=== PATIENT | male | born 1970 | race Caucasian/White ===

== ENCOUNTER 2022-08-14 16:05 | Inpatient (IN) | payer SELFPAY ==
[2022-08-14] VITALS (23 sets, daily range): BP systolic 113–147; BP diastolic 69–92; PULSE 70–101; RESP 13–23; TEMP 36.6–37.1; O2SAT 86–100; BMI 40.7
--- NOTE | ~2022-08-14 | CT_ITS ---
EXAMINATION: CTA chest PE protocol DATE: 08/14/2022 17:47 INDICATION: Shortness of breath TECHNIQUE: Computed tomography angiography (CTA) of the chest was performed with 100 mL Omnipaque-350 intravenous contrast timed to evaluate the pulmonary arteries. Coronal maximum intensity projection 3D-reconstructions were created by the technologist. The dose-length product (DLP) was 942.67 mGy-cm. Automated exposure control and iterative reconstruction technique were employed. COMPARISON: None. FINDINGS: The pulmonary arteries are well-opacified. No pulmonary embolism is identified. Nodules of the right upper lobe measure 2 mm and 4 mm. There is mild atelectasis of the right lower lobe. No pat hologically enlarged thoracic lymph nodes are identified. The heart size is normal. There is mild tho racic spondylosis. IMPRESSION: 1. No pulmonary embolus identified. 2. Mild atelectasis of the right lower lobe. 3. Right upper lobe nodules measuring up to 4 mm. If the patient has no risk factors for malignancy, no further follow up is required. If there are risk factors for malignancy (i.e., history of smoking , asbestos or radiation exposure), consider followup CT in 12 months. Reviewed, dictated and finalized at location [facility]. [employer] IMPRESSION: 1. No pulmonary embolus identified. 2. Mild atelectasis of the right lower lobe. 3. Right upper lobe nodules measuring up to 4 mm. If the patient has no risk fa ctors for malignancy, no further follow up is required. If there are risk fact ors for malignancy (i.e., history of smoking, asbestos or radiation exposure), consider followup CT in 12 months.
--- NOTE | ~2022-08-14 | US_ITS ---
EXAMINATION:US venous doppler LE BI INDICATION:Leg edema TECHNIQUE: Multiple grayscale, color flow and Doppler images of the right and left lower extremity de ep venous systems were obtained and reviewed. COMPARISON:No prior studies for comparison. FINDINGS: The common femoral, superficial femoral and popliteal veins demonstrate normal respiratory variation, augmentation and compressibility. Color flow is also seen within the posterior tibial, pe roneal, greater saphenous and profunda veins. IMPRESSION: 1: No lower extremity deep venous thrombosis. Reviewed, dictated and finalized at location [facility] [employer]
--- NOTE | 2022-08-14 16:15 | ECG_ITS ---
Measurements Intervals [place] Rate: 87 P: 66 [place]: 123 QRS: 70 QRSD: 93 T: 69 QT: 368 QTc: 444 Interpretive Statements SINUS RHYTHM BORDERLINE R WAVE PROGRESSION, ANTERIOR LEADS BASELINE ARTIFACT- I, AVL BORDERLINE ECG NO PREVIOUS ECG AVAILABLE FOR COMPARISON Electronically Signed On 08-15-2022 7:32:35 CAMP DIRECTOR by Jens Heredia D.O.
[2022-08-14 16:30] LABS: Basophils Absolute Auto 0.1 K/mm3 (0.0-0.1); Basophils Percent Auto 0.6 % (0.2-1.2); Eosinophils Absolute Auto 0.1 K/mm3 (0-0.3); Eosinophils Percent Auto 0.4 % (0-4.4); Hemoglobin 16.1 g/dL (14.0-18.0); Immature Granulocyte Absolute 0.06 K/mm3 (0.00-0.031); Immature Granulocyte Percent A 0.5 % (0-0.5); Lymphocytes Absolute Auto 1.81 K/mm3 (0.9-3.2); Lymphocytes Percent Auto 15.5 % (18.3-44.2); Mean Corpuscular Hemoglobin 29.3 pg (26-34); Mean Corpuscular Volume 94.7 fl (80-100); Mean Platelet Volume 9.2 fl (7.4-10.4); Monocytes Absolute Auto 0.9 K/mm3 (0.1-0.6); Monocytes Percent Auto 7.6 % (2.6-8.5); Neutrophils Absolute Auto 8.8 K/mm3 (1.3-6.7); Neutrophils Percent Auto 75.4 % (45.5-73.1); Platelet Count Result 297 k/mm3 (150-375); Red Blood Count 5.49 M/mm3 (4.6-6.20); Red Cell Distribution Width 15.6 % (11.5-14.5); White Blood Count 11.7 K/mm3 (4.5-10.0)
[2022-08-14] MEDS: IPRATROPIUM BR 0.02% INH SOLN 0.5 MG/2.5 ML VIAL INHALATION ×2 (16:37→17:52)
[2022-08-14] MEDS: ALBUTEROL SULFATE NEB 2.5 MG/3 ML INH 5 MG INHALATION ×2 (16:37→17:52)
--- NOTE | 2022-08-14 16:38 | ED.GENADULT ---
HPI - General Adult General Chief complaint: Shortness of Breath/Dyspnea Stated complaint: shortness of breath, decreased oxygen saturations Time Seen by Provider: 08/14/22 16:15 Source: RN notes reviewed History of Present Illness HPI narrative: Patient presents emergency department from home for shortness of breath. Patient states he has been feeling progressively short of breath over the past several months he states is gotten worse over the past week states is associated with an occasional cough this been nonproductive states that shortness of breath is worse with exertion. Patient also notes he has been having swelling of his bilateral lower extremities. Shortness of breath does not get worse when he lays down flat he denies any fevers or chills or chest pain denies any abdominal pain nausea or vomiting. States he does have a history of smoking approximately 1 and half packs per day of cigarettes states he has not been doing see a doctor in numerous years Related Data Allergies Allergy/AdvReac Type Severity Reaction Status Date / Time No Known Allergies Allergy Verified 08/14/22 16:29 Review of Systems Review of Systems: Gen.: Denies fevers or chills ENT: Denies congestion Respiratory: See HPI CV: Denies chest pain or palpitations GI: Denies abdominal pain nausea, emesis or diarrhea Musculoskeletal: Denies back pain or muscle pain Neuro: Denies numbness, tingling, weakness or focal weakness Skin: Denies rash Except as documented, all other systems reviewed and negative [facility] Past Medical History Medical History (Updated 08/14/22 @ 18:27 by Agustin Rinaldi DO) Patient denies significant medical history Social History Social History (Updated 08/14/22 @ 18:24 by Agustin Rinaldi DO) Smoking packs per day: 1.5 Smoking cigarettes per day: 30.0 Smoking status: Current every day smoker Exam Narrative: APPEARANCE: Mild respiratory distress, nontoxic, resting in bed EYES: EOMI HEENT: Normocephalic, atraumatic, OMM RESPIRATORY: Mild respiratory distress, speaking in full sentences, wheezing throughout the bilateral lung salas with decreased breath sounds in the bases CARDIOVASCULAR: Regular rate and rhythm without murmurs rubs or gallops. ABDOMINAL: Soft, nontender, nondistended, no rebound or guarding MUSCULOSKELETAl: Moves all extremities. No clubbing, cyanosis or edema. NEURO: Awake and alert. Following commands, speech normal, no focal deficits SKIN:: Warm, dry. No rashes lesions or abrasions PSYCHIATRIC: Normal affect/mood, Course Course Emergency Course: Patient with episodes of desat and down into the upper 80s on room air will placed on nasal cannula Discussed with ABIMAEL Raya for Dr. Tobias for hospitalist service who agrees with admission Discussed with patient and family results of workup and diagnosis. Discussed need for admission. Patient and family understand and agree to current treatment plan Vital Signs Vital signs: Vital Signs Temperature 98.7 F 08/14/22 16:10 Pulse Rate 92 08/14/22 16:10 Respiratory Rate 20 08/14/22 16:10 Blood Pressure 147/77 H 08/14/22 16:10 Pulse Oximetry 94 08/14/22 16:10 Oxygen Delivery Room Air 08/14/22 16:10 Temperature 98.7 F 08/14/22 16:10 Pulse Rate 101 H 08/14/22 18:12 Respiratory Rate 22 H 08/14/22 18:12 Blood Pressure 143/69 H 08/14/22 17:16 Pulse Oximetry 87 L 08/14/22 17:18 Oxygen Delivery Nasal Cannula 08/14/22 17:18 Oxygen Flow Rate 2 08/14/22 17:18 Medical Decision Making [facility] Narrative Medical decision making narrative: Patient presents for shortness of breath history of of smoking 1/2 packs/day for numerous years has not seen a doctor in over 10 years wheezing throughout the bilateral lung salas times suspect the patient has COPD CT of the chest shows no pneumonia or PEs lab results are within normal limits BMP is normal and patient is negative for COVID and influenza will admit for continued breat
[2022-08-14] MEDS: methylPREDNISolone SOD SUCC 125 MG VIAL IV PUSH (16:39)
[2022-08-14 16:40] LABS: Alanine Aminotransferase 31 U/L (6-50); Albumin Level 3.6 g/dL (3.5-5.1); Alkaline Phosphatase 59 U/L (38-126); Aspartate Amino Transferase 21 U/L (17-59); Bilirubin,Total 0.4 mg/dL (0.2-1.3); Blood Urea Nitrogen 20 mg/dL (9-20); Calcium 8.5 mg/dL (8.4-10.2); Carbon Dioxide > 40 mmol/L (22-30); Chloride 93 mmol/L (98-107); Estimated CRCL calculation 97 ml/min; Estimated Glomerular Filt Rate > 60; Glucose 121 mg/dL (65-110); Potassium 3.7 mmol/L (3.4-5.0); Sodium 139 mmol/L (137-145)
[2022-08-14 16:41] LABS: Partial Thromboplastin Time 23.3 SECONDS (22.3-36.8); Prothrombin Time 12.6 Seconds (11.1-14.7)
[2022-08-14 16:51] LABS: NT Pro B Type Natriuretic Pept 45 pg/mL (19.9-100); Troponin I 0.028 ng/mL (0.000-0.034)
[2022-08-14 17:16] LABS: Influenza A QL RT-PCR Negative (Negative); Influenza B QL RT-PCR Negative (Negative); SARS-CoV-2 RNA PCR Negative
--- NOTE | 2022-08-14 18:48 | PM.IMHP ---
H&P: HPI History of Present Illness Date/Time: 08/14/22 18:48 Chief Complaint: Shortness of breath Narrative: This is a 52-year-old male patient who has not not been to a physician in many years. The patient does not take any medication. The patient stated that he came to the emergency room because he has been short of breath. This has been getting progressively worse over the last several months. He also has a cough and shortness of breath with exertion. He has also been having swelling in his lower extremities and he has orthopnea. No fever no chills. The patient endorses that he smokes 1 and half packs of cigarettes a day. CTA was read as the following. No pulmonary embolus identified. 2. Mild atelectasis of the right lower lobe. 3. Right upper lobe nodules measuring up to 4 mm. If the patient has no risk factors for malignancy, no further follow up is required.? If there are risk factors for malignancy (i.e., history of smoking, asbestos or radiation exposure), consider followup CT in 12 months. The patient was given Solu-Medrol and neb treatments in the emergency room. The patient is being admitted to observation status on the date of service of 08/14/2022 Review of Systems Review of Systems: See HPI [facility] Past Medical History Medical History (Updated 08/15/22 @ 01:19 by Dorota Angelo NP) Patient denies significant medical history Tobacco abuse Surgical History Surgical History (Updated 08/14/22 @ 18:49 by Dorota Angelo NP) H/O foot surgery Family History Family History (Updated 08/14/22 @ 18:50 by Dorota Angelo NP) Mother Dementia Social History Social History (Updated 08/15/22 @ 01:20 by Dorota Angelo NP) Social History: The patient is seperated from his legally but still continues to live with her. They have 3 children. The patient works at [employer]. The patient smokes at least 1 and half packs of cigarettes a day. He uses marijuana . Patient denies alcohol use but stated he drink heavily when he was younger. Code status full code Smoking packs per day: 1.5 Smoking cigarettes per day: 30.0 Years smoked: 40 Smoking pack-years: 60.00 Smoking status: Current every day smoker Tobacco type: cigarettes Alcohol intake: former Substance use: current Substance use type: marijuana Lack of Transportation: No Lack of Food: Never True Current Housing: I Have Housing Concerned About Future Housing: Decline to Answer Difficulty Paying Gas/Electric Bills: Decline to Answer Difficulty Paying for Meds: Decline to Answer Currently Unemployed: Decline to Answer Education: Grade School Difficulty w/ Childcare or Family Care: No Spiritual care concerns: No Meds Home Medications and Allergies Home Medications Medication Instructions Recorded Confirmed Type No Home Medications 08/14/22 08/14/22 History Allergies Allergy/AdvReac Type Severity Reaction Status Date / Time No Known Allergies Allergy Verified 08/14/22 16:29 Vital Signs Vital Signs - 24 hr 08/14/22 16:10 08/14/22 16:28 08/14/22 16:37 Temperature 37.1 C Pulse Rate 92 94 Respiratory Rate 20 20 Blood Pressure 147/77 H Pulse Oximetry 94 92 Oxygen Delivery Room Air Room Air Oxygen Flow Rate 08/14/22 16:55 08/14/22 17:18 08/14/22 16:17 Temperature Pulse Rate 90 Respiratory Rate 20 Blood Pressure Pulse Oximetry 87 L 92 Oxygen Delivery Nasal Cannula Oxygen Flow Rate 2 08/14/22 16:23 08/14/22 16:40 08/14/22 17:09 Temperature Pulse Rate 89 Respiratory Rate 22 H 13 Blood Pressure 142/92 H Pulse Oximetry 93 100 86 L Oxygen Delivery Oxygen Flow Rate 08/14/22 17:15 08/14/22 17:16 08/14/22 17:54 Temperature Pulse Rate 70 98 Respiratory Rate 18 18 22 H Blood Pressure 143/69 H Pulse Oximetry 92 96 Oxygen Delivery Oxygen Flow Rate 08/14/22 18:12 Temperature Pulse Rate 101 H
--- NOTE | 2022-08-14 21:07 | PC.NURSE ---
This patient, Ronal Mcgovren, was admitted to Medical Room 347-01. Patient/family oriented to hospital policies and general routines including ID bracelet, bed and alarms, visiting hours, pain management, procedures, bathroom and other care routines, personal items, smoking policy, room service/diet, and visiting hours. Information on how to activate the Rapid Response Team has been discussed. Patient/Family are encouraged to report perceived risks to care and to ask questions if they do not understand what they are told or what they should do.
[2022-08-14] MEDS: methylPREDNISolone SOD SUCC 125 MG VIAL 60 MG IV PUSH (23:10)
[2022-08-15] VITALS (12 sets, daily range): BP systolic 106–127; BP diastolic 60–69; PULSE 83–108; RESP 18–36; TEMP 36.4–36.8; O2SAT 92–98
[2022-08-15] MEDS: ALBUTEROL SULFATE NEB 2.5 MG/3 ML INH 5 MG INHALATION ×4 (03:15→20:34)
[2022-08-15] MEDS: IPRATROPIUM BR 0.02% INH SOLN 0.5 MG/2.5 ML VIAL INHALATION ×4 (03:16→20:34)
[2022-08-15] MEDS: methylPREDNISolone SOD SUCC 125 MG VIAL 60 MG IV PUSH (05:36)
[2022-08-15 06:02] LABS: Basophils Percent Auto 0.1 % (0.2-1.2); Hematocrit 54.7 % (42.0-52.0); Hemoglobin 16.1 g/dL (14.0-18.0); Immature Granulocyte Absolute 0.05 K/mm3 (0.00-0.031); Immature Granulocyte Percent A 0.4 % (0-0.5); Lymphocytes Absolute Auto 0.74 K/mm3 (0.9-3.2); Lymphocytes Percent Auto 5.2 % (18.3-44.2); Mean Corpuscular HGB Conc 29.4 g/dl (32-36); Mean Corpuscular Hemoglobin 28.3 pg (26-34); Mean Corpuscular Volume 96.3 fl (80-100); Mean Platelet Volume 9.1 fl (7.4-10.4); Monocytes Absolute Auto 0.7 K/mm3 (0.1-0.6); Monocytes Percent Auto 5.2 % (2.6-8.5); Neutrophils Absolute Auto 12.6 K/mm3 (1.3-6.7); Neutrophils Percent Auto 89.1 % (45.5-73.1); Platelet Count Result 323 k/mm3 (150-375); Red Blood Count 5.68 M/mm3 (4.6-6.20); Red Cell Distribution Width 15.7 % (11.5-14.5); White Blood Count 14.1 K/mm3 (4.5-10.0)
[2022-08-15 06:20] LABS: Alanine Aminotransferase 33 U/L (6-50); Albumin Level 3.8 g/dL (3.5-5.1); Alkaline Phosphatase 56 U/L (38-126); Anion Gap 3 mmol/L (8-16); Aspartate Amino Transferase 19 U/L (17-59); Bilirubin,Total 0.4 mg/dL (0.2-1.3); Blood Urea Nitrogen 19 mg/dL (9-20); Calcium 8.2 mg/dL (8.4-10.2); Carbon Dioxide 39 mmol/L (22-30); Chloride 96 mmol/L (98-107); Estimated CRCL calculation 120 ml/min; Estimated Glomerular Filt Rate > 60; Glucose 177 mg/dL (65-110); Potassium 4.7 mmol/L (3.4-5.0); Sodium 138 mmol/L (137-145)
[2022-08-15] MEDS: ENOXAPARIN 40 MG/0.4 ML SYRINGE SUB-Q (08:45)
--- NOTE | 2022-08-15 11:21 | PM.CNPUL ---
Assessment and Plan Assessment and plan (1) Acute respiratory failure with hypoxia: Code(s): J96.01 - Acute respiratory failure with hypoxia Status: Acute (2) Tobacco abuse: Code(s): Z72.0 - Tobacco use Status: Acute (3) Shortness of breath: Code(s): R06.02 - Shortness of breath Status: Acute Assessment and Plan: this 52-year-old morbidly obese man has had chronic shortness of breath daytime somnolence, evidence of elevated bicarbonate while on no medications, no evidence of parenchymal lung disease on chest CT. patient's history and diagnostic studies suggest obesity hypoventilation syndrome accounting for most of his symptoms. Plan: ABGs to assess for chronic hypercapnia. Will consider DC home following ABGs. The patient will need further workup with split polysomnography, PFT on an outpatient basis. I have discontinued IV steroids. He will need home oxygen evaluation. History of Present Illness History of Present Illness Consult date: 08/15/22 Chief complaint: Acute respiratory failure with hypoxia, COPD Narrative: this 52-year-old man presented with a chronic shortness of breath. The patient stated that he has been short of breath especially with activities for a number of months. He also noticed some lower extremity edema. He has been a heavy smoker of 1.5 packs per day for many years. He had no fever chills hemoptysis chest pain palpitations orthopnea or wheezing. Upon questioning he admitted having excessive daytime somnolence. 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 On evaluation in the emergency room initial chest CT showed no active lung disease. He has been on supplemental oxygen for hypoxemia. First oximetry evaluation in the emergency room on room air showed no oxyhemoglobin desaturation initially. Patient has been treated with nebulized short-acting bronchodilators and IV steroids presumably for COPD exacerbation. No blood gases were drawn. Total bicarbonate level elevated on admission. Patient has not been on any home medications. Review of Systems Review of Systems: All systems reviewed & are unremarkable except as noted in HPI and below ( HPI and below) [facility] Past Medical History Medical History (Updated 08/15/22 @ 11:25 by Guille Aguayo MD) Patient denies significant medical history Tobacco abuse Surgical History Surgical History (Updated 08/14/22 @ 18:49 by Dorota Angelo NP) H/O foot surgery Family History Family History (Updated 08/14/22 @ 18:50 by Dorota Angelo NP) Mother Dementia Social History Social History (Updated 08/15/22 @ 01:20 by Dorota Angelo NP) Social History: The patient is seperated from his legally but still continues to live with her. They have 3 children. The patient works at [employer]. The patient smokes at least 1 and half packs of cigarettes a day. He uses marijuana . Patient denies alcohol use but stated he drink heavily when he was younger. Code status full code Smoking packs per day: 1.5 Smoking cigarettes per day: 30.0 Years smoked: 40 Smoking pack-years: 60.00 Smoking status: Current every day smoker Tobacco type: cigarettes Alcohol intake: former Substance use: current Substance use type: marijuana Lack of Transportation: No Lack of Food: Never True Current Housing: I Have Housing Concerned About Future Housing: Decline to Answer Difficulty Paying Gas/Electric Bills: Decline to Answer Difficulty Paying for Meds: Decline to Answer Currently Unemployed: Decline to Answer Education: Grade School Difficulty w/ Childcare or Family Care: No Spiritual care concerns: No Meds Home Medications and Allergies Home Medications Medication Instructions Recorded Confirmed Type No Home Medications 08/14/22 08/14/22 History Allergies Allergy/AdvReac Type Severity Reaction Statu
[2022-08-15 13:42] LABS: Alveolar/Arterial O2 Gradient 46.6 mmHg; Fractional Inspired Oxygen 28 %; HCO3 ABG 37.4 mEq/l (22.0-26.0); Oxygen Content ABG 20.4 %vol (16.0-22.0); PO2 ABG 58.9 mmHg (80.0-100.0); Total Hemoglobin 16.7 g/dL (12.0-18.0)
[2022-08-15 13:45] LABS: pH ABG 7.289 (7.350-7.450)
[2022-08-15 13:46] LABS: Oxygen Saturation ABG 86.2 % (95.0-100.0); PCO2 ABG 79.8 mmHg (35.0-45.0)
[2022-08-15 13:47] LABS: Device NASAL CANNULA; Modified Allen's Test Pass; Site Drawn LEFT RADIAL
--- NOTE | 2022-08-15 15:18 | PM.IMPN ---
Progress Note: A&P Assessment and Plan (1) Acute respiratory failure with hypoxia: Code(s): J96.01 - Acute respiratory failure with hypoxia Status: Acute Assessment and Plan: also with hypercapnia BiPAP started Pulmonary on board Steroid Long-term smoker Multiple nodules right upper lobe measuring up to 4 mm needs follow-up with CT Bronchodilators encouraged smoking cessation (2) Tobacco abuse: Code(s): Z72.0 - Tobacco use Status: Acute Assessment and Plan: Encouraged smoking cessation. 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 Check echo. ApneaLink tonight DVT prophylaxis Lovenox Subjective Date/time seen: 08/15/22 15:18 history reviewed. Still feels short of breath on 2 L oxygen. Has not seen physician for well. Discussed with Pulmonary. Review of Systems Review of Systems: All systems reviewed & are unremarkable except as noted in HPI and below Exam Narrative: APPEARANCE: no respiratory distress, nontoxic, sitting up in a chair EYES: EOMI HEENT: Normocephalic, atraumatic, OMM RESPIRATORY: no acute respiratory distress, speaking in full sentences, wheezing throughout the bilateral lung salas with decreased breath sounds in the bases CARDIOVASCULAR: Regular rate and rhythm without murmurs rubs or gallops. ABDOMINAL: Soft, nontender, nondistended, no rebound or guarding MUSCULOSKELETAl: Moves all extremities. No clubbing, cyanosis or edema. NEURO: Awake and alert. Following commands, speech normal, no focal deficits SKIN:: Warm, dry. No rashes lesions or abrasions PSYCHIATRIC: Normal affect/mood Objective Data Vital Signs Vital Signs: Vital Signs - 24 hr 08/14/22 16:10 08/14/22 16:28 08/14/22 16:37 Temperature 98.7 F Pulse Rate 92 94 Respiratory Rate 20 20 Blood Pressure 147/77 H Pulse Oximetry 94 92 Oxygen Delivery Room Air Room Air Oxygen Flow Rate 08/14/22 16:55 08/14/22 17:18 08/14/22 16:17 Temperature Pulse Rate 90 Respiratory Rate 20 Blood Pressure Pulse Oximetry 87 L 92 Oxygen Delivery Nasal Cannula Oxygen Flow Rate 2 08/14/22 16:23 08/14/22 16:40 08/14/22 17:09 Temperature Pulse Rate 89 Respiratory Rate 22 H 13 Blood Pressure 142/92 H Pulse Oximetry 93 100 86 L Oxygen Delivery Oxygen Flow Rate 08/14/22 17:15 08/14/22 17:16 08/14/22 17:54 Temperature Pulse Rate 70 98 Respiratory Rate 18 18 22 H Blood Pressure 143/69 H Pulse Oximetry 92 96 Oxygen Delivery Oxygen Flow Rate 08/14/22 18:12 08/14/22 19:00 08/14/22 19:23 Temperature Pulse Rate 101 H Respiratory Rate 22 H Blood Pressure Pulse Oximetry 93 90 Oxygen Delivery Oxygen Flow Rate 08/14/22 19:40 08/14/22 19:45 08/14/22 19:46 Temperature Pulse Rate 83 94 94 Respiratory Rate 17 23 H 19 Blood Pressure 118/79 Pulse Oximetry 95 94 93 Oxygen Delivery Oxygen Flow Rate 08/14/22 20:00 08/14/22 20:02 08/14/22 20:17 Temperature Pulse Rate 81 92 99 Respiratory Rate 14 18 13 Blood Pressure 119/79 Pulse Oximetry 97 97 92 Oxygen Delivery Oxygen Flow Rate 08/14/22 20:42 08/14/22 21:02 08/15/22 03:18 Temperature 97.8 F Pulse Rate 97 97 Respiratory Rate 18 18 Blood Pressure 113/73 Pulse Oximetry 93 95 Oxygen Delivery Nasal Cannula Oxygen Flow Rate 2 08/15/22 04:38 08/15/22 10:23 08/15/22 14:05 Temperature 97.6 F 97.6 F Pulse Rate 98 108 H 94 Respiratory Rate 18 24 H 22 H Blood Pressure 106/60 123/69 Pulse Oximetry 92 92 Oxygen Delivery Oxygen Flow Rate Intake/Output Intake/Output: Intake & Output 07/20
--- NOTE | 2022-08-15 17:04 | PC.NURSE ---
Dr Aguayo placed pt on Bipap at 1500 and will redraw ABG's at 1999. supervisor powdered sugar and hospitalist, Dr Joaquin notified that patient is on bipap on medical floor until lab redraw @ 1999.
[2022-08-15 20:21] LABS: Alveolar/Arterial O2 Gradient 110.4 mmHg; Base Excess ABG 11.7 mEq/l (+/-2.0); Carboxyhemoglobin 1.5 % THb (0-2.0); Fractional Inspired Oxygen 35 %; HCO3 ABG 40.2 mEq/l (22.0-26.0); Methemoglobin ABG 0.4 %THb (0-1.5); Oxygen Content ABG 20.1 %vol (16.0-22.0); Oxygen Saturation ABG 89.6 % (95.0-100.0); Oxyhemoglobin 89.9 % THb (90.0-100.0); PO2 ABG 59.6 mmHg (80.0-100.0); Reduced Hemoglobin 8.2 %THb (0-5.0); Total Hemoglobin 15.9 g/dL (12.0-18.0); pH ABG 7.387 (7.350-7.450)
[2022-08-15 20:27] LABS: Device BIPAP; Modified Allen's Test Pass; PCO2 ABG 68.4 mmHg (35.0-45.0); Site Drawn RIGHT RADIAL
[2022-08-15 20:28] LABS: Expiratory Pressure 6 cmH2O; Inspiratory Pressure 12 cmH2O
[2022-08-16] VITALS (16 sets, daily range): BP systolic 111–118; BP diastolic 60–66; PULSE 70–83; RESP 15–23; TEMP 36.1–37; O2SAT 90–97
[2022-08-16] MEDS: IPRATROPIUM BR 0.02% INH SOLN 0.5 MG/2.5 ML VIAL INHALATION ×3 (01:50→20:57)
[2022-08-16] MEDS: ALBUTEROL SULFATE NEB 2.5 MG/3 ML INH 5 MG INHALATION ×3 (01:50→20:57)
[2022-08-16 05:20] LABS: Basophils Percent Auto 0.2 % (0.2-1.2); Eosinophils Percent Auto 0.2 % (0-4.4); Hematocrit 51.1 % (42.0-52.0); Hemoglobin 14.9 g/dL (14.0-18.0); Immature Granulocyte Absolute 0.05 K/mm3 (0.00-0.031); Immature Granulocyte Percent A 0.4 % (0-0.5); Lymphocytes Absolute Auto 1.45 K/mm3 (0.9-3.2); Lymphocytes Percent Auto 11.9 % (18.3-44.2); Mean Corpuscular HGB Conc 29.2 g/dl (32-36); Mean Corpuscular Hemoglobin 28.4 pg (26-34); Mean Corpuscular Volume 97.5 fl (80-100); Mean Platelet Volume 9.1 fl (7.4-10.4); Monocytes Percent Auto 7.9 % (2.6-8.5); Neutrophils Absolute Auto 9.6 K/mm3 (1.3-6.7); Neutrophils Percent Auto 79.4 % (45.5-73.1); Platelet Count Result 263 k/mm3 (150-375); Red Blood Count 5.24 M/mm3 (4.6-6.20); Red Cell Distribution Width 15.5 % (11.5-14.5); White Blood Count 12.2 K/mm3 (4.5-10.0)
[2022-08-16 05:44] LABS: Alanine Aminotransferase 26 U/L (6-50); Albumin Level 3.3 g/dL (3.5-5.1); Alkaline Phosphatase 49 U/L (38-126); Aspartate Amino Transferase 15 U/L (17-59); Bilirubin,Total 0.4 mg/dL (0.2-1.3); Blood Urea Nitrogen 23 mg/dL (9-20); Calcium 7.8 mg/dL (8.4-10.2); Carbon Dioxide > 40 mmol/L (22-30); Chloride 93 mmol/L (98-107); Estimated CRCL calculation 106 ml/min; Estimated Glomerular Filt Rate > 60; Glucose 118 mg/dL (65-110); Hypochromasia 1+ (NORMAL); Magnesium 2.2 mg/dL (1.6-2.3); Platelet Estimate Adequate (Adequate); Potassium 4.2 mmol/L (3.4-5.0); Sodium 137 mmol/L (137-145)
[2022-08-16] MEDS: ENOXAPARIN 40 MG/0.4 ML SYRINGE SUB-Q (08:17)
--- NOTE | 2022-08-16 12:24 | PM.PNPUL ---
Progress Note: A&P Assessment and Plan (1) Acute respiratory failure with hypoxia: Code(s): J96.01 - Acute respiratory failure with hypoxia Status: Acute Assessment and Plan: 52-year-old man presented with shortness of breath mild lower extremity edema and acute on chronic hypercapnic respiratory failure. Diagnostic studies and patient history suggest obesity hypoventilation syndrome. Patient has been on BiPAP support with improvement of gas exchange and also clinical condition. He seems to be tolerating BiPAP support very well. Plan: will continue with AVAPS tidal volume 500 EPAP 8 and supplemental oxygen to titrate for O2 sat over 92%. Patient will have a ApneaLink monitor on those settings tonight. (2) Tobacco abuse: Code(s): Z72.0 - Tobacco use Status: Acute (3) Acute and chronic respiratory failure with hypercapnia: Code(s): J96.22 - Acute and chronic respiratory failure with hypercapnia Status: Acute Subjective Date/time seen: 08/16/22 12:24 Interval history: patient doing better. He has been on BiPAP support since yesterday for acute on chronic hypercapnic respiratory failure. Tolerating BiPAP support well. No new respiratory symptoms. Currently on nasal cannula Review of Systems Review of Systems: All systems reviewed & are unremarkable except as noted in HPI and below ( HPI and below) Exam Narrative: GENERAL APPEARANCE: Well developed, well nourished, alert and cooperative, and appears to be in no acute distress while on supplemental oxygen via nasal cannula SKIN: Inspection of the skin reveals no rashes, ulcerations or petechiae. HEENT: Sclerae anicteric and conjunctivae pink and moist. Extraocular movements were intact and pupils were equal, round, and reactive to light. The oral mucosa, hard and soft palate, tongue and posterior pharynx were normal. edentulous NECK: Supple. There was no thyroid enlargement, and no tenderness, or masses were felt. CHEST: Normal AP diameter and normal contour without any kyphoscoliosis. LUNGS: Auscultation of the lungs revealed normal breath sounds without any other adventitious sounds or rubs. CARDIAC: There was a regular rate and rhythm without any murmurs, gallops, rubs. ABDOMEN: Soft and nontender with normal bowel sounds. There was no organomegaly. LYMPH NODES: No lymphadenopathy was appreciated in the neck. EXTREMITIES: No cyanosis, clubbing; trace pedal edema NEUROLOGIC: Alert and oriented x 3. Normal affect. Objective Data Vital Signs Vital Signs: Vital Signs - 24 hr 08/15/22 14:05 08/15/22 14:50 08/15/22 14:50 Temperature 36.4 C Pulse Rate 94 87 87 Respiratory Rate 22 H 21 H 21 H Blood Pressure 123/69 Pulse Oximetry 92 96 Oxygen Delivery BiPAP Oxygen Flow Rate 08/15/22 16:00 08/15/22 18:56 08/15/22 20:30 Temperature Pulse Rate 97 83 Respiratory Rate 24 H 36 H Blood Pressure Pulse Oximetry 98 Oxygen Delivery BiPAP BiPAP Oxygen Flow Rate 08/15/22 20:30 08/15/22 20:30 08/15/22 20:00 Temperature Pulse Rate 83 88 Respiratory Rate 36 H Blood Pressure Pulse Oximetry 98 Oxygen Delivery Oxygen Flow Rate 08/15/22 21:00 08/15/22 20:00 08/15/22 22:00 Temperature 36.8 C Pulse Rate 86 86 85 Respiratory Rate 24 H 24 H 22 H Blood Pressure 127/61 Pulse Oximetry 94 94 Oxygen Delivery BiPAP Oxygen Flow Rate 08/15/22 23:44 08/16/22 00:00 08/16/22 01:51 Temperature Pulse Rate 70 83 Respiratory Rate 24 H Blood Pressure Pulse Oximetry 90 Oxygen Delivery BiPAP Nasal Cannula Oxygen Flow Rate 08/16/22 01:51 08/16/22 01:51 08/16/22 03:31 Temperature Pulse Rate 83 83 81 Respiratory Rate 20 20 20 Blood Pressure Pulse Oximetry 90 92 Oxygen Delivery Nasal Cannula BiPAP Oxygen Flow Rate 2 08/16/22 02:05 08/16/22 04:00 08/16/22 06:00 Temperature 36.8 C Pulse Rate 82 73 73 Respiratory Rate 22 H 20 Blood Pressure
--- NOTE | 2022-08-16 14:44 | PM.IMPN ---
Progress Note: A&P Assessment and Plan (1) Acute respiratory failure with hypoxia: Code(s): J96.01 - Acute respiratory failure with hypoxia Status: Acute Assessment and Plan: also with hypercapnia BiPAP started which he tolerated well. Pulmonary on board Steroid Long-term smoker Multiple nodules right upper lobe measuring up to 4 mm needs follow-up with CT Bronchodilators encouraged smoking cessation (2) Tobacco abuse: Code(s): Z72.0 - Tobacco use Status: Acute Assessment and Plan: Encouraged smoking cessation. Nicotine patch has been ordered for the patient (3) COPD (chronic obstructive pulmonary disease): Code(s): J44.9 - Chronic obstructive pulmonary disease, unspecified Status: Acute Assessment and Plan: -the patient will need a pulmonary function test and will need to follow with director of product marketing Plan lower extremity edema: Venous duplex negative . echo pending. ApneaLink tonight DVT prophylaxis Lovenox Subjective Date/time seen: 08/16/22 14:44 Interval history: remained on BiPAP overnight. Feels okay. has cough no other complaints Review of Systems Review of Systems: All systems reviewed & are unremarkable except as noted in HPI and below Exam Narrative: APPEARANCE: no respiratory distress, nontoxic, lying in bed EYES: EOMI HEENT: Normocephalic, atraumatic, OMM RESPIRATORY: no acute respiratory distress, speaking in full sentences, wheezing throughout the bilateral lung salas with decreased breath sounds in the bases CARDIOVASCULAR: Regular rate and rhythm without murmurs rubs or gallops. ABDOMINAL: Soft, nontender, nondistended, no rebound or guarding MUSCULOSKELETAl: Moves all extremities. No clubbing, cyanosis or edema. NEURO: Awake and alert. Following commands, speech normal, no focal deficits SKIN:: Warm, dry. No rashes lesions or abrasions PSYCHIATRIC: Normal affect/mood Objective Data Vital Signs Vital Signs: Vital Signs - 24 hr 08/15/22 14:50 08/15/22 14:50 08/15/22 16:00 Temperature Pulse Rate 87 87 97 Respiratory Rate 21 H 21 H Blood Pressure Pulse Oximetry 96 Oxygen Delivery BiPAP Oxygen Flow Rate 08/15/22 18:56 08/15/22 20:30 08/15/22 20:30 Temperature Pulse Rate 83 Respiratory Rate 24 H 36 H Blood Pressure Pulse Oximetry 98 98 Oxygen Delivery BiPAP BiPAP Oxygen Flow Rate 08/15/22 20:30 08/15/22 20:00 08/15/22 21:00 Temperature Pulse Rate 83 88 86 Respiratory Rate 36 H 24 H Blood Pressure Pulse Oximetry Oxygen Delivery Oxygen Flow Rate 08/15/22 20:00 08/15/22 22:00 08/15/22 23:44 Temperature 98.3 F Pulse Rate 86 85 Respiratory Rate 24 H 22 H 24 H Blood Pressure 127/61 Pulse Oximetry 94 94 Oxygen Delivery BiPAP BiPAP Oxygen Flow Rate 08/16/22 00:00 08/16/22 01:51 08/16/22 01:51 Temperature Pulse Rate 70 83 83 Respiratory Rate 20 Blood Pressure Pulse Oximetry 90 90 Oxygen Delivery Nasal Cannula Nasal Cannula Oxygen Flow Rate 2 08/16/22 01:51 08/16/22 03:31 08/16/22 02:05 Temperature Pulse Rate 83 81 82 Respiratory Rate 20 20 22 H Blood Pressure Pulse Oximetry 92 Oxygen Delivery BiPAP Oxygen Flow Rate 08/16/22 04:00 08/16/22 06:00 08/16/22 09:18 Temperature 98.2 F Pulse Rate 73 73 76 Respiratory Rate 20 Blood Pressure 111/62 Pulse Oximetry 96 96 Oxygen Delivery Nasal Cannula Oxygen Flow Rate 2 08/16/22 09:18 08/16/22 09:26 Temperature Pulse Rate 76 77 Respiratory Rate 20 16 Blood Pressure Pulse Oximetry Oxygen Delivery Oxygen Flow Rate Intake/Output Intake/Output: Intake & Output 08/13/22 08/14/22 08/15/22 08/16/22 23:59 23:59 23:59 23:59 Intake Total 1909 390 Balance 1909 390 Meds/Results Medications: Active Medications Generic Name Dose Route Start Last Admin Trade Name Freq PRN Reason Stop Dose Admin Albuterol 5 mg 0
[2022-08-17] VITALS (12 sets, daily range): BP systolic 131; BP diastolic 66; PULSE 74–94; RESP 16–20; TEMP 36.3; O2SAT 92–96
--- NOTE | 2022-08-17 | ECHO_ITS ---
Patient Info Name: Ronal Mcgovern Age: 52 years : 1970 Gender: Male Ht: 65 in Wt: 244 lbs BSA: 2.31 m2 HR: 80 bpm BP: 118 / 60 mmHg Heart Rhythm: Sinus Rhythm Technical Quality: Fair Exam Date: 08/17/2022 1:33 PM Exam Location: [facility] Pulmonary Patient Status: Inpatient Admit Date: 08/16/2022 Staff Ordering Physician: Eduardo Joaquin MD Expressive Music Therapist: Delia Oliva RDCS Attending Provider: Elena Tobias DO Exam Type: CA echo dop color flow w con Study Info Indications R06.02 - Shortness of breath Complete two-dimensional, color flow and Doppler transthoracic echocardiogram is performed with contrast to opacify the left ventricle and to improve the deliniation of the left ventricle endocardial borders. Contrast/Agitated Saline Contrast/Ag. Saline: Definity Amount: 3.00 ml Administered By: Delia Oliva RDCS Existing IV Access: Yes IV Access Condition: patent with no signs of infiltration Summary 1. Technically difficult examination, definity contrast used to improve visualization. 2. Normal LV size with concentric hypertrophy and hyperdynamic systolic function. 3. Left atrial enlargement. 4. No significant valvular dysfunction identified by Doppler. Left Ventricle Left ventricular chamber dimension is normal. Left ventricular systolic function is hyperdynamic, estimated at >70%. There is mild concentric increased left ventricular wall thickness. The left ventricular diastolic function is grade I diastolic dysfunction. Right Ventricle Right ventricular chamber dimension is normal. Left Atria Left atrial chamber dimension is mildly enlarged. Right Atria Right atrial chamber dimension is not well visualized. Aortic Valve The aortic valve is normal. Pulmonic Valve The pulmonic valve is not well visualized. Mitral Valve The mitral valve has normal leaflets. Tricuspid Valve The tricuspid valve leaflets are not well visualized. Pericardium/Pleural The pericardium appears normal. Aorta The aortic root size at the sinus of Valsalva is normal. Left Ventricular Outflow Tract Name Value Normal LVOT 2D LVOT Diameter 1.98 cm LVOT Doppler LVOT Peak Gradient 5 mmHg LVOT Mean Gradient 3 mmHg LVOT VTI 20.37 cm LVOT VTI/AV VTI Ratio 0.63 LVOT Stroke Volume 62.68 ml LVOT CO 4.36 l/min LVOT CI 1.89 L/min/m2 Mitral Valve Name Value Normal MV Doppler MV Decel [place] 626.61 cm/s2 MV PHT 0 s MV Area (PHT) 4.66 cm2 4.00-5.00 MV Diastolic Function
--- NOTE | 2022-08-17 00:30 | PCRCNOTE ---
Pt insisted on him wearing AVAPS tonight. RT spoke with pt about his GLEN screen tonight that MD ordered. Education was given. Pt will need further education from MD on Apnea link screening for GLEN. pt stated he is concerned about how he would pay for home device if he need to wear BIPAP at home.
[2022-08-17 07:34] LABS: Basophils Absolute Auto 0.1 K/mm3 (0.0-0.1); Basophils Percent Auto 0.5 % (0.2-1.2); Eosinophils Absolute Auto 0.1 K/mm3 (0-0.3); Eosinophils Percent Auto 1.4 % (0-4.4); Hematocrit 50.3 % (42.0-52.0); Hemoglobin 14.9 g/dL (14.0-18.0); Immature Granulocyte Absolute 0.01 K/mm3 (0.00-0.031); Immature Granulocyte Percent A 0.1 % (0-0.5); Lymphocytes Absolute Auto 1.16 K/mm3 (0.9-3.2); Lymphocytes Percent Auto 12.7 % (18.3-44.2); Mean Corpuscular HGB Conc 29.6 g/dl (32-36); Mean Corpuscular Hemoglobin 28.8 pg (26-34); Mean Corpuscular Volume 97.3 fl (80-100); Mean Platelet Volume 9.4 fl (7.4-10.4); Monocytes Absolute Auto 0.7 K/mm3 (0.1-0.6); Monocytes Percent Auto 7.3 % (2.6-8.5); Neutrophils Absolute Auto 7.1 K/mm3 (1.3-6.7); Platelet Count Result 252 k/mm3 (150-375); Red Blood Count 5.17 M/mm3 (4.6-6.20); Red Cell Distribution Width 15.5 % (11.5-14.5); White Blood Count 9.1 K/mm3 (4.5-10.0)
[2022-08-17 07:49] LABS: Alanine Aminotransferase 28 U/L (6-50); Albumin Level 3.3 g/dL (3.5-5.1); Alkaline Phosphatase 50 U/L (38-126); Aspartate Amino Transferase 20 U/L (17-59); Bilirubin,Total 0.7 mg/dL (0.2-1.3); Blood Urea Nitrogen 16 mg/dL (9-20); Calcium 7.8 mg/dL (8.4-10.2); Carbon Dioxide > 40 mmol/L (22-30); Chloride 94 mmol/L (98-107); Estimated CRCL calculation 120 ml/min; Estimated Glomerular Filt Rate > 60; Glucose 96 mg/dL (65-110); Magnesium 2.2 mg/dL (1.6-2.3); Potassium 4.1 mmol/L (3.4-5.0); Sodium 135 mmol/L (137-145)
[2022-08-17 07:53] LABS: Atypical Lymphocytes Present; Hypochromasia 1+ (NORMAL); Platelet Estimate Adequate (Adequate); Schistocytes None Seen (NORMAL)
[2022-08-17] MEDS: ENOXAPARIN 40 MG/0.4 ML SYRINGE SUB-Q (09:53)
[2022-08-17] MEDS: IPRATROPIUM BR 0.02% INH SOLN 0.5 MG/2.5 ML VIAL INHALATION ×2 (10:12→14:50)
[2022-08-17] MEDS: ALBUTEROL SULFATE NEB 2.5 MG/3 ML INH 5 MG INHALATION ×2 (10:12→14:50)
[2022-08-17 10:24] LABS: Alveolar/Arterial O2 Gradient 62.7 mmHg; Fractional Inspired Oxygen 28 %; HCO3 ABG 38.1 mEq/l (22.0-26.0); Oxygen Content ABG 20.1 %vol (16.0-22.0); Oxygen Saturation ABG 90.2 % (95.0-100.0); Oxyhemoglobin 89.6 % THb (90.0-100.0); PO2 ABG 60.6 mmHg (80.0-100.0); PO2 FiO2 Ratio Arterial Blood 2.16 %; pH ABG 7.388 (7.350-7.450)
[2022-08-17 10:27] LABS: Device NASAL CANNULA; Modified Allen's Test Pass; PCO2 ABG 64.7 mmHg (35.0-45.0); Site Drawn RIGHT RADIAL
--- NOTE | 2022-08-17 11:40 | PM.PNPUL ---
Progress Note: A&P Assessment and Plan (1) COPD (chronic obstructive pulmonary disease): Code(s): J44.9 - Chronic obstructive pulmonary disease, unspecified Status: Acute Assessment and Plan: Patient with a smoking history and had wheezing on admission. Is currently breathing back to his normal on albuterol and ipratropium nebulizers Q 6 hours. Patient received 2 days of IV steroids and has been off since then. patient requires no oxygen at rest or with ambulation per formal home O2 assessment completed today. From a pulmonary perspective patient is ready to be discharged home on these pulmonary medications: Beta agonist and muscarinic antagonist that he can afford (Anoro Ellipta 62.5/25 at 1 puff Q day, stiolto respimat 2.5/2.5 at 1 puff BID, bevespi aerosphere 9 mcg/4.8 at 2 puffs BID, combivent respimat at 2 puffs Q 4 HR or separate albuterol and atrovent inhalers at 2 puffs Q 4 HR). Depending on what his preference is: When he naps or sleeps he should use either BiPAP rate 20, 12/6, room air or AVAPS-AE rate of 20, tidal volume 500, minimum EPAP 5, maximum EPAP 15, minimal inspiratory pressure 5, maximal inspiratory pressure 20, inspiratory time 1.0, rise of 3 and room air. To follow up in Pulmonary Clinic in 3-4 weeks for download to check his compliance, overnight oximetry to ensure adequate oxygenation at night, and outpatient PFTs. I gave him our business card and informed our operations scheduler. Discussed with Dr. Joaquin. (2) Obesity hypoventilation syndrome: Code(s): E66.2 - Morbid (severe) obesity with alveolar hypoventilation Status: Acute Assessment and Plan: 52-year-old man presented with shortness of breath mild lower extremity edema and acute on chronic hypercapnic respiratory failure. Diagnostic studies and patient history suggest obesity hypoventilation syndrome. ABG on admission was 7.29/80/59 on 2 L nasal cannula. Patient was placed on BiPAP 12/6 and blood gas was 7.39/68/60 on 35% FiO2. Admission serum bicarbonate greater than 40. Patient has no bullous emphysema on a CT angiogram and no PE. TSH is 1.91 and Free T4 is 0.80 both normal. BMI is 40.7. The patient has obesity hypoventilation syndrome and would benefit from noninvasive ventilation to prevent further deterioration and subsequent hospitalization. The patient did poorly with straight BiPAP and had difficulty sleeping but tolerated noninvasive ventilation with the AVAPS mode. 08/17 patient wore AVAPS rate of 12, tidal volume 500, EPAP 8, minimal inspiratory pressure 9, maximal inspiratory pressure 25, inspiratory time 1.0, rise of 3 which is our middle setting, 35% FiO2 and said he did well on these settings and slept well. States his breathing is back to normal. Saturations on 2 L nasal cannula 95%. White blood cell count 9.1, creatinine 0.7. Apnea link on these settings was not obtained as the patient was concerned about his ability to pay for this therapy. I have initiated the process for a home noninvasive ventilator with the AVAPS mode and he is self pay and will remain self pay per patient preference. The marketing research coordinator will contacte a [employer] to get pricing information for BiPAP and noninvasive ventilation with the AVAPS-AE mode and discuss this pricing information with the patient to determine what he acan afford. Initiation of home noninvasive ventilation can take place as an outpatient. Depending on what his preference is: When he naps or sleeps he should use either BiPAP rate 20, 12/6, room air or AVAPS-AE rate of 20, tidal volume 500, minimum EPAP 5, maximum EPAP 15, minimal inspiratory pressure 5, maximal inspiratory pressure 20,inspiratory time 1.0, rise of 3 and room air. Patient requires no oxygen at rest or with ambulation per formal home O2 assessment completed today. Patient should be discharged on no oxygen at night and will perform overnight oximetry on either BiPAP or noninvasive ve
--- NOTE | 2022-08-17 12:00 | PCRCNOTE ---
HOME O2 EVAL COMPLETE. PATIENT DOES NOT QUALIFY FOR HOME O2 AT THIS TIME. RN NOTIFIED.
[2022-08-17] MEDS: PERFLUTREN LIPID MICROSPHERES 1.5 ML VIAL DILUTED TO 10 ML TOTAL VOLUME IV PUSH (14:03)
--- NOTE | 2022-08-17 14:04 | IVDEFINITY ---
Prior to administration of IV Definity the patient was educated on the risks and benefits of the imaging enhancing agent including potential adverse side effects. The patient verbalized understanding. Allergies were verified. No exclusion criteria were identified and at least one of the following inclusion criteria were met: 1) physician request, 2) patient technically difficult to image (per the [place] [employer]ocardi[employer] guidelines of two or more segments not discernable within the apical view), or 3) questionable left ventricular function. ?
--- NOTE | 2022-08-17 16:06 | PCRCNOTE ---
HOME OVER NIGHT OXIMETRY ORDERED THRU [facility] [place].
--- NOTE | 2022-08-17 16:21 | PM.DS ---
DS: Admitting Diagnosis Discharge Date 08/17/2022 Admitting Diagnosis Shortness of breath DS: Discharge Diagnosis Discharge Diagnosis (1) Acute respiratory failure with hypoxia: Code(s): J96.01 - Acute respiratory failure with hypoxia Status: Acute (2) Tobacco abuse: Code(s): Z72.0 - Tobacco use Status: Acute (3) COPD (chronic obstructive pulmonary disease): Code(s): J44.9 - Chronic obstructive pulmonary disease, unspecified Status: Acute DS: Summary Hospital Course Hospital Course: # Acute respiratory failure with hypoxia: ?also with hypercapnia BiPAP started which he tolerated well. Pulmonary on board Steroid Long-term smoker Multiple nodules right upper lobe measuring up to 4 mm needs follow-up with CT Bronchodilators ?encouraged smoking cessation He still had hypercapnia more than 50 likely obesity hypoventilation syndrome along with underlying COPD. Rule out GLEN. Required BiPAP/noninvasive ventilation due to above however he self pay and not able to afford this. He will be checked if he qualifies for overnight oxygen. He will gets sleep study and evaluate for this as an outpatient basis. He will be placed on Combivent Respimat Trilogy Ellipta samples were provided for the patient He was adamant at going home today and hence arrangements as such were made. # tobacco abuse: Encouraged smoking cessation.? Nicotine patch has been ordered for the patient # COPD: -the patient will need a pulmonary function test and will need to follow with sweet dough mixer #?lower extremity edema:? ? Venous duplex negative .? echo reviewed. No valvular abnormality. ApneaLink planned however patient refused to get this done # DVT prophylaxis Lovenox Time Spent with Patient Time attestation: Total time spent providing and/or coordinating discharge services: 45 minutes Exam Narrative: APPEARANCE: no respiratory distress, nontoxic, lying in bed EYES: EOMI HEENT: Normocephalic, atraumatic, OMM RESPIRATORY: no acute respiratory distress, speaking in full sentences, wheezing throughout the bilateral lung salas with decreased breath sounds in the bases CARDIOVASCULAR: Regular rate and rhythm without murmurs rubs or gallops. ABDOMINAL: Soft, nontender, nondistended, no rebound or guarding MUSCULOSKELETAl: Moves all extremities. No clubbing, cyanosis or edema. NEURO: Awake and alert. Following commands, speech normal, no focal deficits SKIN:: Warm, dry. No rashes lesions or abrasions PSYCHIATRIC: Normal affect/mood DS: Data Data Completed and Pending Completed studies during hospitalization: Exam Type: ? ? CA echo dop color flow w con Study Info Indications ? ? R06.02 - Shortness of breath Complete two-dimensional, color flow and Doppler transthoracic echocardiogram is performed with contrast to opacify the left ventricle and to improve the deliniation of the left ventricle endocardial borders. Account #: ? ? [id number] Contrast/Agitated Saline Contrast/Ag. Saline: ? ? Definity Amount: ? ? 3.00 ml Administered By: ? ? Hazel,? Delia [facility] Existing IV Access: ? ? Yes IV Access Condition: ? ? patent with no signs of infiltration Summary ? 1. Technically difficult examination, definity contrast used to improve visualization. ? 2. Normal LV size with concentric hypertrophy and hyperdynamic systolic function. ? 3. Left atrial enlargement. ? 4. No significant valvular dysfunction identified by Doppler. Left Ventricle ? Left ventricular chamber dimension is normal. ? Left ventricular systolic function is hyperdynamic, estimated at >70%. ? There is mild concentric increased left ventricular wall thickness. ? The left ventricular diastolic function is grade I diastolic dysfunction. Right Ventricle ? Right ventricular chamber dimension is normal. Left Atria ? Left atrial chamber dimension is mildly enlarged. Right Atria ? Right atrial mert
== END 2022-08-17 17:28 | disposition home or self-care (01) | DRG 133 ==
LOC: ANHED 18:27 → ANH3MED 20:13 → ANH2MED 08-17 12:36 → ANH3MED 08-18 15:45
PROVIDERS: Internal Medicine Pulmonary Disease; Admitting Provider Student in an Organized Health Care Education/Training Program; Emergency Provider Emergency Medicine; Visit Provider Internal Medicine
DX: J96.01 Acute respiratory failure with hypoxia (principal); J44.9 Chronic obstructive pulmonary disease, unspecified; E66.2 Morbid (severe) obesity with alveolar hypoventilation; J96.22 Acute and chronic respiratory failure with hypercapnia; Z68.41 Body mass index [BMI] 40.0-44.9, adult; R60.0 Localized edema; Z20.822 Contact with and (suspected) exposure to COVID-19; F17.210 Nicotine dependence, cigarettes, uncomplicated; Z59.9 Problem related to housing and economic circumstances, unspecified
CPT/HCPCS: 36415; 36600; 71275; 80053; 82375; 82805; 83050; 83735; 83880; 84439; 84443; 84484; 85025; 85610; 85730; 87636; 93005; 93970; 94002; 94003; 94618; 94640; 96372; 96374; 96376; 99285; C8929; G0378; G0379; J1650; J2930; Q9957; Q9967